=== PATIENT | male | born 1980 | race Caucasian/White ===

== ENCOUNTER 2020-04-24 12:17 | Inpatient (IN) | payer OTHER ==
[~2020-04-24] VITALS: Ht 180.3 cm; Wt 111.1 kg
[2020-04-24 12:34] VITALS: BP 141/82
[2020-04-24 13:29] LABS: ABSOLUTE EOSINOPHILS 0.5 thou/uL (0.0-0.7); ABSOLUTE LYMPHOCYTES 1.9 thou/uL (0.8-5.3); ABSOLUTE MONOCYTES 0.7 thou/uL (0.0-1.2); BASOPHILS 0.4 %; EOSINOPHILS 6.4 %; HEMATOCRIT 40.2 % (42.0-52.0); HEMOGLOBIN 13.8 gm/dL (14.0-18.0); MCH 29.1 pg (26.0-34.0); MCHC 34.5 g/dL (28.0-37.0); MCV 84.4 fL (80.0-100.0); MONOCYTES 9.1 %; MPV 8.2 fl. (7.2-11.1); NUCLEATED RBCS 0 /100WBC; PLATELET COUNT* 234 thou/uL (150-400); POLYS 61.1 %; RBC 4.75 mil/uL (4.50-6.00); RDW-CV 13.9 % (10.5-14.5); WBC 8.1 thou/uL (4.0-11.0)
[2020-04-24 13:36] LABS: CALCIUM 8.7 mg/dL (8.5-10.1); POTASSIUM 4.2 mmol/L (3.5-5.1)
[2020-04-24 13:41] LABS: ALBUMIN 3.4 g/dL (3.4-5.0); TOTAL BILIRUBIN 0.3 mg/dL (<0.1-1.0); TOTAL PROTEIN 7.8 g/dL (6.4-8.2)
[2020-04-24 16:54] LABS: CHOLESTEROL 144 mg/dL (<200); HDL CHOLESTEROL 68 mg/dL (>40); LDL CHOLESTEROL 69 mg/dL (<100); TC:HDL 2.1 Ratio (Not establshd); TRIGLYCERIDE 38 mg/dL (<150); VLDL 8 mg/dL (<40)
[2020-04-24 16:55] LABS: SERUM ASSESSMENT Clear
[2020-04-24 17:02] VITALS: BP 124/61
[2020-04-24 17:23] VITALS: BP 125/74
[2020-04-24 20:00] VITALS: BP 125/62
[2020-04-25 07:41] VITALS: BP 131/65
[2020-04-25 19:50] VITALS: BP 132/63
[2020-04-26 07:50] VITALS: BP 104/63
[2020-04-26] MEDS ORDERED: PERCOCET PO (10:52)
[2020-04-26] MEDS ORDERED: BACTRIM DS TAB1 EACH PO (10:52)
[2020-04-26 11:03] VITALS: BP 104/63
== END 2020-04-26 14:45 | disposition home or self-care (01) | DRG 920 ==
LOC: M.ERS 12:17 → M.TBA-ER 13:16 → M.3W 17:00
PROVIDERS: Nurse Practitioner Psychiatric/Mental Health; ADMIT Internal Medicine; ATTEND Internal Medicine
DX: T86.822 Skin graft (allograft) (autograft) infection (principal); L03.116 Cellulitis of left lower limb; L02.612 Cutaneous abscess of left foot; R65.10 Systemic inflammatory response syndrome (SIRS) of non-infectious origin without acute organ dysfunction; F17.210 Nicotine dependence, cigarettes, uncomplicated; B19.20 Unspecified viral hepatitis C without hepatic coma; Y83.8 Other surgical procedures as the cause of abnormal reaction of the patient, or of later complication, without mention of misadventure at the time of the procedure; B96.89 Other specified bacterial agents as the cause of diseases classified elsewhere; Z90.49 Acquired absence of other specified parts of digestive tract; Z83.3 Family history of diabetes mellitus; Z82.49 Family history of ischemic heart disease and other diseases of the circulatory system; Z03.818 Encounter for observation for suspected exposure to other biological agents ruled out; Y92.89 Other specified places as the place of occurrence of the external cause